=== PATIENT | female | born 1950 | race Caucasian/White ===

== ENCOUNTER → 2022-01-08 | Outpatient (CLI) | payer OTHER | LOC: KOH-I 09:21 | DX: M79.672 Pain in left foot (principal); M79.671 Pain in right foot; M77.32 Calcaneal spur, left foot; M77.31 Calcaneal spur, right foot | CPT/HCPCS: 73630 ==

== ENCOUNTER → 2022-01-16 | Outpatient (CLI) | payer OTHER | LOC: KOH-I 09:36 | DX: M79.671 Pain in right foot (principal); G89.29 Other chronic pain; M19.071 Primary osteoarthritis, right ankle and foot | CPT/HCPCS: 73718 ==